=== PATIENT | female | born 1990 | race African-American/Black ===

== ENCOUNTER 2017-10-17 20:56 | Emergency (ER) | payer SELFPAY | END 2017-10-17 22:38 | disposition home or self-care (01) | LOC: ERS 20:56 | DX: J11.1 Influenza due to unidentified influenza virus with other respiratory manifestations (principal); F31.9 Bipolar disorder, unspecified; F90.9 Attention-deficit hyperactivity disorder, unspecified type; F17.210 Nicotine dependence, cigarettes, uncomplicated | CPT/HCPCS: 99283 ==

== ENCOUNTER 2018-04-08 14:54 | Emergency (ER) | payer SELFPAY ==
[2018-04-08] MEDS ORDERED: Ibuprofen 200 MG TAB ONE (16:53)
[2018-04-08] MEDS ORDERED: Gentamicin Ophth Soln 0.3% 5 ml Bottle ONE (16:54)
== END 2018-04-08 17:04 | disposition home or self-care (01) ==
LOC: ERS 14:54
DX: H10.9 Unspecified conjunctivitis (principal); F31.9 Bipolar disorder, unspecified; F25.9 Schizoaffective disorder, unspecified; F90.9 Attention-deficit hyperactivity disorder, unspecified type; F17.210 Nicotine dependence, cigarettes, uncomplicated; J45.909 Unspecified asthma, uncomplicated
CPT/HCPCS: 99283

== ENCOUNTER 2018-05-12 20:27 | Emergency (ER) | payer SELFPAY ==
[2018-05-12 21:19] LABS: #Basophils 0.1 thou/uL (0.0-0.2); #Eosinphils 0.3 thou/uL (0.0-0.7); #Lymphocytes 3.5 thou/uL (1.20-3.40); #Monocytes 0.6 thou/uL (0.11-0.59); #Neutrophils 3.3 thou/uL (1.40-6.50); %Basophils 1.3 % (0.0-1.0); %Eosinophils 3.6 % (0.0-10.0); %Lymphocytes 44.6 % (21.0-51.0); %Monocytes 7.3 % (0.0-10.0); %Neutrophils 43.1 % (42.0-75.0); Hemoglobin 13.5 g/dL (12.0-16.0); Mean Corpuscular Volume 81.9 fL (78.0-98.0); Mean Platelet Volume 7.1 fL (7.4-10.4); Platelet Count 212 thou/uL (130-400); RBC Distribution Width 13.4 % (11.5-14.5); White Blood Cell (WBC) Count 7.7 thou/uL (4.8-10.8)
[2018-05-12 21:22] LABS: BHCG - Serum Negative (NEGATIVE); Pregs Control Background? CLEAR/WHITE (CLR/WHITE); Pregs Control Bar Appear? YES (CONTROL BAR)
[2018-05-12 21:40] LABS: ALT (SGPT) 13 U/L (8-55); AST (SGOT) 15 U/L (5-34); Albumin 4.2 g/dL (3.5-5.0); Alkaline Phosphatase 63 U/L (40-150); Anion Gap 10 mmol/L (10-20); BUN (Urea Nitrogen) 12 mg/dL (7.0-18.7); Bilirubin, Total 0.8 mg/dL (0.2-1.2); Calc. Creatinine Clearance 0 mL/min (70-130); Calcium 9.3 mg/dL (7.8-10.44); Carbon Dioxide 26 mmol/L (22-29); Chloride 106 mmol/L (98-107); Estimated GFR-MDRD 76; Globulin 2.8 g/dL (2.4-3.5); Glucose 90 mg/dL (70-105); Lipase 80 U/L (8-78); Sodium 138 mmol/L (136-145)
== END 2018-05-12 21:53 | disposition left against medical advice (07) ==
LOC: ERS 20:27
DX: Z53.21 Procedure and treatment not carried out due to patient leaving prior to being seen by health care provider (principal)
CPT/HCPCS: 36415; 80053; 83690; 84703; 85025; 93005

== ENCOUNTER 2021-04-03 12:09 | Emergency (ER) | payer SELFPAY ==
[2021-04-03] MEDS ORDERED: Ibuprofen 200 MG TAB ONE (13:24)
[2021-04-03] MEDS ORDERED: Cyclobenzaprine 10 MG TAB ONE (13:24)
== END 2021-04-03 13:50 | disposition home or self-care (01) ==
LOC: ERS 12:09
DX: M25.511 Pain in right shoulder (principal); F17.210 Nicotine dependence, cigarettes, uncomplicated

== ENCOUNTER 2021-10-21 10:04 | Outpatient (CLI) | payer OTHER ==
[2021-10-21 11:02] LABS: BHCG - Serum Negative (NEGATIVE); Pregs Control Background? CLEAR/WHITE (CLR/WHITE); Pregs Control Bar Appear? YES (CONTROL BAR)
== END 2021-10-21 10:05 | disposition home or self-care (01) ==
LOC: RAD 10:04
PROVIDERS: ATTEND Obstetrics & Gynecology
DX: N97.9 Female infertility, unspecified (principal)
CPT/HCPCS: 36415; 58340; 74740; 84703

== ENCOUNTER 2021-11-05 07:54 | Emergency (ER) | payer OTHER ==
[2021-11-05 16:52] LABS: SARS-CoV-2 PCR by NAA Not Detected (NotDetected)
== END 2021-11-05 08:40 | disposition home or self-care (01) ==
LOC: ERS 07:54
DX: B34.9 Viral infection, unspecified (principal); Z20.822 Contact with and (suspected) exposure to COVID-19; F17.210 Nicotine dependence, cigarettes, uncomplicated
CPT/HCPCS: 87804; 99283; U0003; U0005

== ENCOUNTER 2021-11-12 17:42 | Emergency (ER) | payer OTHER ==
[2021-11-12] MEDS ORDERED: Lidocaine 1% (PF) 30 ML VIAL ONE (18:14)
[2021-11-12] MEDS ORDERED: Ketorolac Tromethamine 30 MG/ML VIAL ONE (18:14)
[2021-11-12] MEDS ORDERED: Xylocaine 1% w/ Epi 1:100K 10 ML VIAL ONE (18:20)
== END 2021-11-12 19:03 | disposition home or self-care (01) ==
LOC: ERS 17:42
DX: L02.214 Cutaneous abscess of groin (principal); I10 Essential (primary) hypertension; F17.210 Nicotine dependence, cigarettes, uncomplicated
CPT/HCPCS: 10060; 96372; J1885; J2001

== ENCOUNTER 2024-01-06 23:47 | Emergency (ER) | payer OTHER ==
[2024-01-07] MEDS ORDERED: Acetaminophen 500 MG TAB ONE (01:52)
== END 2024-01-07 01:55 ==
LOC: ERS 23:47
DX: T18.0XXA Foreign body in mouth, initial encounter (principal); K12.2 Cellulitis and abscess of mouth; I10 Essential (primary) hypertension; F17.210 Nicotine dependence, cigarettes, uncomplicated
CPT/HCPCS: 40804; 99283

== ENCOUNTER 2024-04-21 17:41 | Emergency (ER) | payer OTHER ==
[2024-04-21] MEDS ORDERED: hydrOXYzine 25 MG TAB ONE (18:51)
[2024-04-21] MEDS ORDERED: Acetaminophen 325 MG TAB ONE (18:51)
== END 2024-04-21 18:59 | disposition home or self-care (01) ==
LOC: ERS 17:41
DX: S63.501A Unspecified sprain of right wrist, initial encounter (principal); F41.0 Panic disorder [episodic paroxysmal anxiety]; I10 Essential (primary) hypertension; J45.909 Unspecified asthma, uncomplicated; F17.210 Nicotine dependence, cigarettes, uncomplicated; W01.0XXA Fall on same level from slipping, tripping and stumbling without subsequent striking against object, initial encounter

== ENCOUNTER 2024-09-27 11:06 | Emergency (ER) | payer OTHER ==
[2024-09-27] MEDS ORDERED: Ketorolac Tromethamine 30 MG (1 mL) VIAL ONE (11:23)
== END 2024-09-27 11:48 | disposition home or self-care (01) ==
LOC: ERS 11:06
DX: K08.89 Other specified disorders of teeth and supporting structures (principal); I10 Essential (primary) hypertension; F17.210 Nicotine dependence, cigarettes, uncomplicated
CPT/HCPCS: 96372; 99282; J1885